=== PATIENT | male | born 1980 | race Caucasian/White ===

== ENCOUNTER 2017-04-06 09:12 | Day surgery (SDC) | payer BC ==
[2017-04-06] MEDS ORDERED: Lactated Ringer's 500 ML IV ONE (09:28)
[2017-04-06 09:40] VITALS: TEMP 97
[2017-04-06] MEDS ORDERED: Propofol 10 mg/ml Inj (20 ML) ONE (10:04)
[2017-04-06] MEDS ORDERED: Midazolam 2 MG/2 ML VIAL ONE (10:04)
[2017-04-06 10:35] VITALS: O2SAT 99
[2017-04-06 10:36] VITALS: BP 130/88; PULSE 88; RESP 16
== END 2017-04-06 10:52 | disposition home or self-care (01) ==
LOC: H.ENDO 09:12
PROVIDERS: ATTEND Internal Medicine Gastroenterology
DX: K20.9 Esophagitis, unspecified (principal); E11.9 Type 2 diabetes mellitus without complications
CPT/HCPCS: 43239; 88305; 88313; J2001; J2250; J2704; J3010; J7120